=== PATIENT | male | born 1980 ===

== ENCOUNTER 2021-07-25 10:07 | Outpatient (REF) | payer OTHER, SELFPAY ==
[2021-07-25 11:01] LABS: Thyroid Stimulating Hormone 0.59 uIU/mL (0.32-4.0)
== END 2021-07-25 10:08 | disposition home or self-care (01) ==
LOC: HO.LNP 10:07
PROVIDERS: Visit Provider Internal Medicine
DX: E03.9 Hypothyroidism, unspecified (principal)
CPT/HCPCS: 84443

== ENCOUNTER 2022-07-28 15:55 | Outpatient (REF) | payer OTHER, SELFPAY ==
[2022-07-28 17:01] LABS: Appearance Urine Clear; Color Urine Yellow; Glucose Urine UA Negative (Negative); Leukocyte Esterase Urine Negative (Negative); Nitrite Urine Negative (Negative); PH 5.5 (5.0-9.0); Specific Gravity - Urine 1.015 (1.005-1.025); Urine Blood Negative (Negative); Urine Ketones Negative (Negative); Urine Protein Negative (Neg-Trace)
[2022-07-28 17:04] LABS: Bacteria Urine None Seen (None Seen); Hyaline Casts Urine 0-2 /LPF (0-2); RBC Urine 0-2 /HPF (0-2); Squamous Epithelial Cell Urine 0-2 /HPF (0-2); WBC Urine 0-5 /HPF (0-5)
[2022-07-28 17:07] LABS: Basophils Percent Auto 0.4 % (0-2); Eosinophils Absolute Auto 0.2 X10*3/uL (0.0-0.4); Eosinophils Percent Auto 2.4 % (0-4); Hematocrit 42.2 % (42.0-52.0); Imm Gran Abs Auto 0.04 X10*3/uL (0.00-0.03); Imm Gran Pct Auto 0.4 % (0.0-0.4); Lymphocytes Absolute Auto 1.5 X10*3/uL (1.2-4.9); Lymphocytes Percent Auto 15.9 % (20-40); MANUAL DIFF FLAG SCAN; Mean Corpuscular HGB Conc 33.2 g/dl (31.0-36.0); Mean Corpuscular Hemoglobin 28.8 pg (27.0-33.0); Mean Corpuscular Volume 86.8 fL (80.0-98.0); Mean Platelet Volume 9.3 fL (9.4-12.4); Monocytes Absolute Auto 1.7 X10*3/uL (0.1-1.2); Monocytes Percent Auto 17.6 % (2-11); Neutrophils Percent Auto 63.3 % (45-73); Platelet Count 305 X10*3/uL (160-400); Red Blood Count 4.86 X10*6/uL (4.60-5.80); Red Cell Distribution Width 12.6 % (11.0-16.0); SCAN SMEAR FLAG 1; White Blood Count 9.5 X10*3/uL (4.8-10.8)
[2022-07-28 17:28] LABS: Alanine Aminotransferase 27 U/L (0-40); Albumin Level 4.1 g/dL (3.5-5.0); Alkaline Phosphatase 62 U/L (39-117); Anion Gap 12 (12-20); Aspartate Amino Transferase 27 U/L (5-37); Bilirubin Total 0.5 mg/dL (0.0-1.0); Blood Urea Nitrogen 15 mg/dL (9-16); Calcium 8.8 mg/dL (8.4-10.2); Carbon Dioxide 31 mmol/L (22-29); Chloride 102 mmol/L (96-108); Cholesterol 245 mg/dL; Estimated Glomerular Filt Rate > 60; Glucose Random 89 mg/dL (60-115); HDL Cholesterol 69 mg/dL; LDL Cholesterol Calculated 158 mg/dl; Sodium 141 mmol/L (135-145); Total Protein 6.6 g/dL (6.5-8.0); Triglycerides 93 mg/dL
[2022-07-28 17:43] LABS: PSA,Total (Free>4and<10) 0.51 ng/mL (0.00-4.00)
[2022-07-28 18:04] LABS: SLIDE REVIEW VERIFIED
== END 2022-07-28 15:56 | disposition home or self-care (01) ==
LOC: HO.LNP 15:55
PROVIDERS: PCP Internal Medicine; Visit Provider Internal Medicine
DX: Z00.00 Encounter for general adult medical examination without abnormal findings (principal); Z12.5 Encounter for screening for malignant neoplasm of prostate; E03.9 Hypothyroidism, unspecified; D72.820 Lymphocytosis (symptomatic)
CPT/HCPCS: 80053; 80061; 81001; 84153; 85025

== ENCOUNTER 2022-08-20 16:01 | Outpatient (REF) | payer OTHER, SELFPAY ==
[2022-08-20 16:05] LABS: MANUAL DIFF FLAG NO
[2022-08-20 16:07] LABS: Basophils Percent Auto 0.9 % (0-2); Eosinophils Absolute Auto 0.3 X10*3/uL (0.0-0.4); Eosinophils Percent Auto 6.3 % (0-4); Hematocrit 38.1 % (42.0-52.0); Hemoglobin 12.9 g/dl (14.0-18.0); Lymphocytes Absolute Auto 1.7 X10*3/uL (1.2-4.9); Lymphocytes Percent Auto 39.2 % (20-40); Mean Corpuscular HGB Conc 33.9 g/dl (31.0-36.0); Mean Corpuscular Hemoglobin 29.1 pg (27.0-33.0); Mean Corpuscular Volume 85.8 fL (80.0-98.0); Mean Platelet Volume 9.2 fL (9.4-12.4); Monocytes Absolute Auto 0.6 X10*3/uL (0.1-1.2); Monocytes Percent Auto 13.5 % (2-11); Neutrophils Absolute Auto 1.7 x10*3/uL (2.0-8.3); Neutrophils Percent Auto 40.1 % (45-73); Platelet Count 386 X10*3/uL (160-400); Red Blood Count 4.44 X10*6/uL (4.60-5.80); Red Cell Distribution Width 12.1 % (11.0-16.0); White Blood Count 4.3 X10*3/uL (4.8-10.8)
== END 2022-08-20 16:02 | disposition home or self-care (01) ==
LOC: HO.LNP 16:01
PROVIDERS: Visit Provider Internal Medicine
DX: D72.821 Monocytosis (symptomatic) (principal)
CPT/HCPCS: 85025

== ENCOUNTER 2023-10-04 10:57 | Outpatient (REF) | payer OTHER, SELFPAY ==
[2023-10-04 11:00] LABS: MANUAL DIFF FLAG NO
[2023-10-04 11:05] LABS: Basophils Absolute Auto 0.1 X10*3/uL (0.0-0.2); Basophils Percent Auto 0.8 % (0-2); Eosinophils Absolute Auto 0.3 X10*3/uL (0.0-0.4); Eosinophils Percent Auto 5.4 % (0-4); Hematocrit 40.4 % (42.0-52.0); Hemoglobin 14.2 g/dl (14.0-18.0); Imm Gran Abs Auto 0.01 X10*3/uL (0.00-0.03); Imm Gran Pct Auto 0.2 % (0.0-0.4); Lymphocytes Absolute Auto 2.5 X10*3/uL (1.2-4.9); Lymphocytes Percent Auto 42.4 % (20-40); Mean Corpuscular HGB Conc 35.1 g/dl (31.0-36.0); Mean Corpuscular Hemoglobin 30.4 pg (27.0-33.0); Mean Corpuscular Volume 86.5 fL (80.0-98.0); Mean Platelet Volume 9.3 fL (9.4-12.4); Monocytes Absolute Auto 0.7 X10*3/uL (0.1-1.2); Monocytes Percent Auto 11.3 % (2-11); Neutrophils Absolute Auto 2.4 x10*3/uL (2.0-8.3); Neutrophils Percent Auto 39.9 % (45-73); Platelet Count 292 X10*3/uL (160-400); Red Blood Count 4.67 X10*6/uL (4.60-5.80); White Blood Count 5.9 X10*3/uL (4.8-10.8)
[2023-10-04 11:26] LABS: Appearance Urine Clear; Color Urine Yellow; Glucose Urine UA Negative (Negative); Leukocyte Esterase Urine Negative (Negative); Nitrite Urine Negative (Negative); PH 5.5 (5.0-9.0); Specific Gravity - Urine 1.015 (1.005-1.025); Urine Blood Negative (Negative); Urine Ketones Negative (Negative); Urine Protein Negative (Neg-Trace)
[2023-10-04 11:30] LABS: Bacteria Urine None Seen (None Seen); Hyaline Casts Urine 0-2 /LPF (0-2); RBC Urine 0-2 /HPF (0-2); Squamous Epithelial Cell Urine 0-2 /HPF (0-2); WBC Urine 0-5 /HPF (0-5)
[2023-10-04 11:32] LABS: Alanine Aminotransferase 28 U/L (0-40); Albumin Level 3.9 g/dL (3.5-5.0); Alkaline Phosphatase 56 U/L (39-117); Anion Gap 16 (12-20); Aspartate Amino Transferase 26 U/L (5-37); Bilirubin Total 0.7 mg/dL (0.0-1.0); Blood Urea Nitrogen 13 mg/dL (9-16); Calcium 9.1 mg/dL (8.4-10.2); Carbon Dioxide 26 mmol/L (22-29); Chloride 104 mmol/L (96-108); Cholesterol 229 mg/dL (<200); Estimated Glomerular Filt Rate > 60; Glucose Fasting 82 mg/dL (60-99); HDL Cholesterol 55 mg/dL (>40); LDL Cholesterol Calculated 134 mg/dL (<100); Sodium 142 mmol/L (135-145); Total Protein 6.9 g/dL (6.5-8.0); Triglycerides 203 mg/dL (<150)
[2023-10-04 11:55] LABS: TSH reflex Free T4 0.18 uIU/mL (0.32-4.0)
[2023-10-04 12:37] LABS: Free T4 (Free Thyroxine) 1.42 ng/dL (0.71-1.85)
== END 2023-10-04 10:58 | disposition home or self-care (01) ==
LOC: HO.LNP 10:57
PROVIDERS: Visit Provider Internal Medicine
DX: Z00.00 Encounter for general adult medical examination without abnormal findings (principal); E03.9 Hypothyroidism, unspecified; D72.820 Lymphocytosis (symptomatic); Z12.5 Encounter for screening for malignant neoplasm of prostate
CPT/HCPCS: 80053; 80061; 81001; 84153; 84439; 84443; 85025

== ENCOUNTER 2024-06-19 13:02 | Outpatient (REF) | payer OTHER, SELFPAY ==
[2024-06-19 13:44] LABS: TSH reflex Free T4 < 0.01 uIU/mL (0.32-4.0)
[2024-06-19 14:26] LABS: Free T4 (Free Thyroxine) 1.69 ng/dL (0.71-1.85)
--- OUTSIDE RECORDS SUMMARY | 2024-06-19 17:40 | XMS_ITS | Patient Health Record ---
Author Organization Jersey López MD Address [address] [employer], [place] [id number] Care Team Providers Care Drafter Automotive Design Name Role Phone Jersey López Primary Care Provider Allergies No Known Allergies Results Component Value Reference Range Notes Complete Blood Count Auto Di ff Reviewed date:10/04/2023 12:38:10 PM Interpretation: Performing Lab:[facility], [address] [place] [phone] Notes/Report: White Blood Count 5.9 4.8-10.8 X10*3/uL Red Blood Count 4.67 4.60-5.80 X10*6/uL Hemoglobin 14.2 14.0-18.0 g/dl Hematocrit 40.4 42.0-52.0 % Mean Corpuscular Volume 86.5 80.0-98.0 fL Mean Corpuscular Hemoglobin 30.4 27.0-33.0 pg Mean Corpuscular HGB Conc 35.1 31.0-36.0 g/dl Red Cell Distribution Width 13.0 11.0-16.0 % Platelet Count 292 160-400 X10*3/uL Mean Platelet Volume 9.3 9.4-12.4 fL Neutrophils Percent Auto 39.9 45-73 % Imm Gran Pct Auto 0.2 0.0-0.4 % Lymphocytes Percent Auto 42.4 20-40 % Monocytes Percent Auto 11.3 2-11 % Eosinophils Percent Auto 5.4 0-4 % Basophils Percent Auto 0.8 0-2 % NRBC Pct Auto 0.0 0.0-0.2 /100WBC Neutrophils Absolute Auto 2.4 2.0-8.3 x10*3/u L Imm Gran Abs Auto 0.01 0.00-0.03 X10*3/uL Lymphocytes Absolute Auto 2.5 1.2-4.9 X10*3/u L Monocytes Absolute Auto 0.7 0.1-1.2 X10*3/uL Eosinophils Absolute Auto 0.3 0.0-0.4 X10*3/u L Basophils Absolute Auto 0.1 0.0-0.2 X10*3/uL NRBC Abs Auto 0.000 0.0-0.012 X10*3/uL Comprehensive Petros. Panel Fa st Reviewed date:10/04/2023 01:12:30 PM Interpretation: Performing Lab:[facility], [address] [place] [phone] Notes/Report: Sodium 142 135-145 mmol/L Potassium 4.0 3.3-5.1 mmol/L Chloride 104 96-108 mmol/L Carbon Dioxide 26 22-29 mmol/L Anion Gap 16 12-20 Blood Urea Nitrogen 13 9-16 mg/dL Creatinine 0.86 0.5-1.4 mg/dL Estimated Glomerular Filt Rate > 60 NOTE: For -Colombian individuals, multiply the result by 1.210. Chronic Kidney Disease: Estimated GFR < 60 mL/min/1.73m2 Severe Kidney Disease: Estimated GFR < 15 mL/min/1.73m2 Glucose Fasting 82 60-99 mg/dL Calcium 9.1 8.4-10.2 mg/dL Bilirubin Total 0.7 0.0-1.0 mg/dL Aspartate Amino Transferase 26 5-37 U/L Alanine Aminotransferase 28 0-40 U/L Total Protein 6.9 6.5-8.0 g/dL Albumin Level 3.9 3.5-5.0 g/dL Alkaline Phosphatase 56 39-117 U/L Lipid Panel Reviewed date:10/04/2023 12:39:46 PM Interpretation: Performing Lab:[facility], [address] [place] [phone] Notes/Report: Triglycerides 203 <150 mg/dL Desirable Triglyceride: less than 150 mg/dL Borderline High Triglyceride 150-199 mg/dL High Triglyceride: 200-499 mg/dL Very High Triglyceride: greater than or equal to 5OO mg/dL Cholesterol 229 <200 mg/dL Desirable Cholesterol: less than 200 mg/dL Borderline High Cholesterol: 200-239 mg/dL High Cholesterol: greater than 239 mg/dL LDL Cholesterol Calculated 134 <100 mg/dL Desirable LDL: less than 100 mg/dL Near Optimal/Above Optimal LDL: 110-129 mg/dL Borderline High LDL: 130-159 mg/dL High LDL: 160-189 mg/dL Very High LDL: greater than or equal to 190 mg/dL HDL Cholesterol 55 >40 mg/dL Desirable HDL: greater than 40 mg/dL Note: This HDL assay may give artificially low results in patients with liver disease. PSA,Total (Free>4and<10) Reviewed date:10/04/2023 12:36:17 PM Interpretation: Performing Lab:[address] [phone] Notes/Report: PSA,Total (Free>4and<10) 0.50 0.00-4.00 ng/mL A Free PSA was not performed: The percentage of Free PSA can be used to enhance the differentiation of prostate cancer from benign prostatic disease in subjects whose PSA levels are between 4.0 and 10.0 ng/mL. For subjects whose PSA levels are below 4.0 or above 10.0 ng/mL, the risk of prostate cancer is determined on the basis of the PSA alone. Therefore the % Free PSA is recommended only for those subjects whose PSA levels are between 4.0 and 10.0 ng/mL. PSA methodology: Buck Alinity i Chemiluminescent Microparticle Immunoassay (CMIA) TSH reflex Free T4 Reviewed date:10/04/2023 12:39:34 PM Interpretation: Performing Lab:[facility], [address] [place] [phone] Notes/Report: TSH reflex Free T4 0.18 0.32-4.0 uIU/mL UA ClnCatch+Micro w/rflx Cul t Reviewed date:10/05/2023 12:36:30 PM Interpretation: Performing Lab:[address] [phone] Notes/Report: Urine, Clean Catch Color Urine Yellow Appearance Urine Clear PH 5.5 5.0-9.0 Glucose Urine UA Negative Negative mg/dL Urine Blood Negative Negative Specific [place] - Urine 1.015 1.005-1.025 Urine Protein Negative Neg-Trace mg/dL Urine Ketones Negative Negative mg/dL Nitrite Urine Negative Negative Leukocyte Esterase Urine Negative Negative RBC Urine 0-2 0-2 /HPF WBC Urine 0-5 0-5 /HPF Squamous Epithelial Cell Urine 0-2 0-2 /HPF Bacteria Urine None Seen None Seen Hyaline Casts Urine 0-2 0-2 /LPF TSH reflex Free T4 Reviewed date:06/19/2024 03:23:38 PM Interpretation: Performing Lab:[facility], [address] [place] [phone] Notes/Report: TSH reflex Free T4 < 0.01 0.32-4.0 uIU/mL Occult Blood, Stool, Guaiac Reviewed date:10/05/2023 10:59:48 AM Interpretation:Negative Performing Lab: Notes/Report: Negative Occult Blood, Stool, Guaiac Neg Free T4 (Free Thyroxine) Reviewed date:10/04/2023 12:42:15 PM Interpretation: Performing Lab:[address] [phone] Notes/Report: Free T4 (Free Thyroxine) 1.42 0.71-1.85 ng/dL Free T4 (Free Thyroxine) Reviewed date:06/19/2024 03:23:22 PM Interpretation: Performing Lab:[facility], [address] [place] [phone] Notes/Report: Free T4 (Free Thyroxine) 1.69 0.71-1.85 ng/dL Reason For Referral Reason annual physical exam needs colonoscopy Diagnosis 1 Annual physical exam (Z00.00) Referral Organization Jersey López MD Referring Provider First Name Jersey Referring Provider Last Name Rene Referring Provider Speciality Internal M edicine Referred Provider Neno Batres Referred Provider Specialty Gastroentero logy General Notes Sepideh Alex 10:32:26 AM EDT > patient will call us with who he wants got to., Sepideh Alex 10/11/2023 10:19:39 AM EDT > left message for patient to call office with info , Sepideh Alex 10/14/2023 10:54:21 AM EDT > left messagefor patient to call office regarding GI referral, need name of doctor he wants to see, Sepideh Alex 10/28/2023 02:32:46 PM EDT > left another message , Sepideh Alex 11/15/2023 11:10:38 AM EDT > spoke with patient he wants to go with [facility], he said he will call and booked his own appt and call me back with info., Sepideh Alex 11/16/2023 03:40:25 PM EDT > info faxed phone [phone], Sepideh Alex 12/02/2023 03:20:03 PM EDT > pre-op appt 12-20-23 at 8:30am with [place] [address] [place] procedure at [facility] with Dr. Gilman 04-27-24 at 1:30, Sepideh Alex 12/03/2023 11:26:19 AM EDT > info mailed to patient Referral Priority Routine Referral Appointment Date 12/20/2023 Medications Medication SIG (Take, Route, Frequency, Duration) Notes Start Date End Date Status Levothyroxine Sodium 112 MCG TAKE 2 TABL ETS BY MOUTH ONCE DAILY IN THE MORNING ON AN EMPTY STOMACH Orally Once a day for 90 days Active Immunizations Vaccine Route Administration Date Status Comme nts Tetanus IM Intramuscular 10/21/2015 Administered pt was given the vaccine at [place]. SARS-COV-2 Moderna Unknown 05/22/2020 Administered SARS-COV-2 Moderna Unknown 06/19/2020 Administered Fluarix Quadrivalent Unknown 04/01/2021 Administered Social History Tobacco Use: Social History Observation Description Date Details (start date - stop date) Former Smoker NA - NA Tobacco Use/Smoking Question Answer Notes Patient is a former smoker How long has it been since y ou last smoked? > 10 years Additional Findings: Tobacco Non-User Fo rmer smoker, currently using no form of tobacco Alcohol Screen Question Answer Notes Did you have a drink contain ing alcohol in the past year? Yes How often did you have a dri nk containing alcohol in the past year? Monthly or less (1 point) How many drinks did you have on a typical day when you were drinking in the past year? 1 or 2 drinks (0 point) How often did you have 6 or more drinks on one occasion in the past year? Never (0 point) Points 1 Interpretation Negative Problems Problem Type SNOMED Code ICD Code Onset Dates Problem Status W/U Status Risk Notes Problem Lymphocytosis (87158891) Lymphocytosis (D72.820) Active confirmed Problem 483850002 Acquired hypothyroidism (E03.9) Active confirmed Problem Monocytosis (62393009) Monocytosis (D72.821) Active confirmed Vital Signs Blood pressure diastolic 70 mm Hg 06/19/2024 hank ght is up 2 pounds since 10-05-23 Height 75.5 in 06/19/2024 weight is up 2 pounds since 10-05-23 Blood pressure systolic 112 mm Hg 06/19/2024 weig ht is up 2 pounds since 10-05-23 Weight 200 lbs 06/19/2024 weight is up 2 pounds since 10-05-23 BMI 24.67 kg/m2 06/19/2024 weight is up 2 pounds since 10-05-23 Encounters Encounter Location Date Provider Diagnosis Jersey López MD [address] [place] [id number] 10/04/2023 Jersey López Acquired hypothyroidism E03.9 ; Lymphocytosis D72.820 and Blood tests for routine general physical examination Z00.00 Jersey López MD [address] [place] [id number] 06/19/2024 Jersey López Acquired hypothyroidism E03.9 Jersey López MD [address] [place] [id number] 10/05/2023 Jersey López Annual physical exam Z00.00 ; Lymphocytosis D72.820 ; Acquired hypothyroidism E03.9 ; Colon cancer screening Z12.11 and Depression screening Z13.31 Jersey López MD [address] [place] [id number] 03/21/2024 Jersey López MD [address] [place] [id number] 03/24/2024 Jersey López MD [address] [place] [id number] 06/13/2024 Jersey López Acquired hypothyroidism E03.9 Assessments Encounter Date Diagnosis (ICD Code) Assessment Notes Treatment Notes Treatment Clinical Notes Section Notes 10/04/2023 Acquired hypothyroidism (ICD-10 - E03.9) 10/04/2023 Lymphocytosis (ICD-10 - D72.820) 06/19/2024 Acquired hypothyroidism (ICD-10 - E03.9) patient verbalized understanding to stop medication, will continue to monitor, pending lab 10/05/2023 Annual physical exam (ICD-10 - Z00.00) labs reviewed and discussed with patient, needs referral to gi for colonoscopy 10/05/2023 Lymphocytosis (ICD-10 - D72.820) 06/13/2024 Acquired hypothyroidism (ICD-10 - E03.9) 10/04/2023 Blood tests for routine general physical examination (ICD-10 - Z00.00) 10/05/2023 Acquired hypothyroidism (ICD-10 - E03.9) order given to patient. 10/05/2023 Colon cancer screening (ICD-10 - Z12.11) guaiac negative 10/05/2023 Depression screening (ICD-10 - Z13.31) Plan Of Treatment Pending Test Test Name Order Date TSH (THYROID STIMULATING HORMONE) 2020 Future Test Test Name Order Date TSH reflex Free T4 04/06/2024 Next Appt Details Provider Name:Jersey Lenz ier, 08/29/2024 07:00:00 AM, [address] [place] [address], [address], [phone], Provider Name:Jersey Lenz ier, 09/05/2024 09:30:00 AM, [address] [place] [address], [place] [address], [employer], [place], [phone], Insurance Providers Payer Name Payer Address Payer Phone Subscriber Number Group Number Insured Name Patient Relationship to Insured Coverage Start Date Coverage End Date [facility] [address] [facility] [address] [id number] [phone] [id number] Tee Robles se Self - patient is the insured
--- OUTSIDE RECORDS SUMMARY | 2024-06-19 17:40 | XMS_ITS ---
Author Organization Jersey López MD Address [address] [place] [phone] Care Team Providers Care Production Line Welder Name Role Phone Jersey López Primary Care Provider REASON FOR VISIT TSH Encounters Encounter Location Date Provider Diagnosis Jersey López MD [address] [place] [address] [place] [phone] 04/06/2024 Jersey López Plan Of Treatment Next Appt Details Provider Name:Jersey barrientos, 08/29/2024 07:00:00 AM, [address] [place] [address], Suite [facility], [place], [place], [phone], Provider Name:Jersey barrientos, 09/05/2024 09:30:00 AM, [address] [place] [address], [address] [place] [address], [phone], Progress Notes * Tee VILLATORO WDOB:1979 (44 yo M)Acc No.[id number]:04/06/2024 Progress Note Patient:?Tee VILLATORO W Provider:?Jersey López MD :1980???Age:44 Y???Sex:Male Ulises e:04/06/2024 Address: [address] [place], [place] Subjective: * Chief Complaints: * ???1. TSH. * Medical History:? Objective: * Vitals:? Assessment: Plan: * Treatment: * * The named appointment provid er may or may not be the originator of this progress note, and it is not deemed complete until electronically signed by the appointment provider. Sign off status: Pending * Provider:?Jersey López MD Date:?1 06/06/2023 Generated for Rosaline huston/Nick/Prashant on:?06/19/2024 05:40 PM EST
--- OUTSIDE RECORDS SUMMARY | 2024-06-19 17:40 | XMS_ITS ---
Author Organization Jersey López MD Address [address] [place] [phone] Care Team Providers Care Right Of Way Maintenance Supervisor Name Role Phone Jersey López Primary Care Provider REASON FOR VISIT RF Levothyrox 25mcg Medications Medication SIG (Take, Route, Frequency, Duration) Notes Start Date End Date Status Levothyroxine Sodium 25 MCG TAKE 1 TABLE T BY MOUTH ONCE DAILY IN THE MORNING ON AN EMPTY STOMACH Orally Once a day for 90 days Active Encounters Encounter Location Date Provider Diagnosis Jersey López MD [address] [place] [address] [place] [id number] 06/13/2024 Jersey López Acquired hypothyroidism E03.9 Assessments Encounter Date Diagnosis (ICD Code) Assessment Notes Treatment Notes Treatment Clinical Notes Section Notes 06/13/2024 Acquired hypothyroidism (ICD-10 - E03.9) Plan Of Treatment Medication Medication Name Sig Start Date Stop Date Notes Levothyroxine Sodium 25 MCG TAKE 1 TABLE T BY MOUTH ONCE DAILY IN THE MORNING ON AN EMPTY STOMACH Orally Once a day for 90 days Next Appt Details Provider Name:Jersey barrientos, 08/29/2024 07:00:00 AM, [address] [place] [address], [place] [address], [place], [place], [phone], Provider Name:Jersey barrientos, 09/05/2024 09:30:00 AM, [address] [place] [address], [place] [address], [place], [place], [phone], Progress Notes * Tee VILLATORO WDOB:1979 (44 yo M)Acc No.[id number]:06/13/2024 Patient:?Tee Villatoro :1980???Age:44 Y???Sex:Male Address:[address] [place] [address], [place] [address] * Refills? Refill Levothyroxine Sodium Tablet, 25 MCG, Orally, 90, TAKE 1 TABLET BY MOUTH ONCE DAILY IN THE MORNING ON AN EMPTY STOMACH, Once a day, 90 days, Refills=0 * true * Date:? Generated for Rosaline huston/Nick/eTransmitting on:?06/19/2024 05:40 PM EST
--- OUTSIDE RECORDS SUMMARY | 2024-06-19 17:40 | XMS_ITS ---
Author Organization Jersey López MD Address [address] [place] [phone] Care Team Providers Care Contact Clerk Name Role Phone Jersey López Primary Care Provider [phone] Allergies No Known Allergies Results Component Value Reference Range Notes TSH reflex Free T4 Reviewed date:06/19/2024 03:23:38 PM Interpretation: Performing Lab:[facility], [address] [place] [phone] Notes/Report: TSH reflex Free T4 < 0.01 0.32-4.0 uIU/mL REASON FOR VISIT CBACK THYROID Medications Medication SIG (Take, Route, Frequency, Duration) Notes Start Date End Date Status Levothyroxine Sodium 112 MCG TAKE 2 TABL ETS BY MOUTH ONCE DAILY IN THE MORNING ON AN EMPTY STOMACH Orally Once a day for 90 days Active Vital Signs Blood pressure systolic 112 mm Hg 06/19/19 25 Blood pressure diastolic 70 mm Hg 025 Height 75.5 in 06/19/2024 Weight 200 lbs 06/19/2024 BMI 24.67 kg/m2 06/19/2024 weight is up 2 pounds since 10-05-23 Encounters Encounter Location Date Provider Diagnosis Jersey López MD [address] [place] [phone] 06/19/2024 Jersey López Acquired hypothyroidism E03.9 Assessments Encounter Date Diagnosis (ICD Code) Assessment Notes Treatment Notes Treatment Clinical Notes Section Notes 06/19/2024 Acquired hypothyroidism (ICD-10 - E03.9) patient verbalized understanding to stop medication, will continue to monitor, pending lab Plan Of Treatment Medication Medication Name Sig Start Date Stop Date Notes Levothyroxine Sodium 25 MCG TAKE 1 TABLE T BY MOUTH ONCE DAILY IN THE MORNING ON AN EMPTY STOMACH Orally Once a day Treatment Notes Assessment Notes Acquired hypothyroidism patient verbaliz ed understanding to stop medication, will continue to monitor, pending lab Next Appt Details Follow Up: 6 Weeks, Reason: Provider Name:Jersey Az Lenz ier, 08/29/2024 07:00:00 AM, [address] [facility], [address], [place], [place], [phone], Provider Name:Jersey Lenz ier, 09/05/2024 09:30:00 AM, [address] [facility], [address], [place], [place], [phone], Progress Notes * Tee VILLATORO WDOB:1979 (44 yo M)Acc No.[id number]:06/19/2024 Patient:?Tee VILLATORO W Provider:?Jersey López MD :1980???Age:44 Y???Sex:Male Ulises e:06/19/2024 Address:[address] [place] [address], [place], [place] Subjective: * Chief Complaints: * ???1. CBACK THYROID. * HPI: ???Symptom(s):?patient is a 44 yo male here for follow up thyroid. not taking any extra meds. one year ago went? to endocrine. * ROS:?General/Constitutional:?Denies?Chills.?Denies?Fatigue.?Denies?Fever.?Denies?Headache.?ENT:?Patient denies?decreased sense of smell, any loss of taste, sore throat.?Denies?Sore throat.?Respiratory:?Denies?Cough.?Denies?Shortness of breath at rest.?Denies?Shortness of breath with exertion.?Gastrointestinal:?Denies?Nausea.?Musculoskeletal:?Patient denies?muscle aches.?Peripheral Vascular:?Patient denies?red and blue toes.? * Medical History:?Medical His tory Verified. * Medications:?Taking Levothyr oxine Sodium 112 MCG Tablet TAKE 2 TABLETS BY MOUTH ONCE DAILY IN THE MORNING ON AN EMPTY STOMACH Orally Once a day , Taking Levothyroxine Sodium 25 MCG Tablet TAKE 1 TABLET BY MOUTH ONCE DAILY IN THE MORNING ON AN EMPTY STOMACH Orally Once a day , Medication List reviewed and reconciled with the patient * Allergies:?N.K.D.A. Objective: * Vitals:?Ht: 75.5, Wt: 200, B NC:24.67, BP:112/70, Wt-k.72. weight is up? 2 pounds since 10-05-23. * Examination: ???General Examination: ?GENERAL APPEARANCE:?alert, well hydrated, in no distress.?SKIN:?good turgor.?HEART:?no murmurs, rubs, gallops, regular rate and rhythm.?LUNGS:?no wheezes, rales, rhonchi, good air movement, clear to auscultation bilaterally.? Assessment: * Assessment: 1.?Acquired hypothyroidism - E03.9 (Primary)??? Plan: * Treatment: * Procedure Codes:?15265 VENIP UNCT, ROUTINE* * Follow Up:?6 Weeks * * The named appointment provid er may or may not be the originator of this progress note, and it is not deemed complete until electronically signed by the appointment provider. Sign off status: Pending * Provider:?Jersey López MD Date:?0 06/19/2024 Generated for Rosaline huston/Nick/Franciscaitting on:?06/19/2024 05:40 PM EST History and Physical Notes * HPI (History of Present Illness) Category Sub-Category Detail Notes Category Not es Symptom(s) patient is a 44 yo male here for follow up thyroid. not taking any extra meds. one year ago went to endocrine Examination Category Sub-Category Detail Notes Category Not es General Examination GENERAL APPEARANCE: alert, w ell hydrated, in no distress HEART: no murmurs, rubs, ga llops, regular rate and rhythm LUNGS: no wheezes, rales, r honchi, good air movement, clear to auscultation bilaterally SKIN: good turgor
== END 2024-06-19 13:03 | disposition home or self-care (01) ==
LOC: HO.LNP 13:02
PROVIDERS: Visit Provider Internal Medicine
DX: E03.9 Hypothyroidism, unspecified (principal)
CPT/HCPCS: 84439; 84443

== ENCOUNTER 2024-09-01 11:09 | Outpatient (REF) | payer OTHER, SELFPAY ==
[2024-09-01 11:12] LABS: MANUAL DIFF FLAG NO
[2024-09-01 11:29] LABS: Appearance Urine Clear; Color Urine Yellow; Glucose Urine UA Negative (Negative); Leukocyte Esterase Urine Negative (Negative); Nitrite Urine Negative (Negative); PH 5.5 (5.0-9.0); Urine Blood Negative (Negative); Urine Ketones Negative (Negative); Urine Protein Negative (Neg-Trace)
[2024-09-01 11:30] LABS: Basophils Percent Auto 0.5 % (0-2); Eosinophils Absolute Auto 0.2 X10*3/uL (0.0-0.4); Eosinophils Percent Auto 2.9 % (0-4); Hematocrit 39.2 % (42.0-52.0); Hemoglobin 13.2 g/dl (14.0-18.0); Imm Gran Abs Auto 0.02 X10*3/uL (0.00-0.03); Imm Gran Pct Auto 0.4 % (0.0-0.4); Lymphocytes Absolute Auto 2.2 X10*3/uL (1.2-4.9); Mean Corpuscular HGB Conc 33.7 g/dl (31.0-36.0); Mean Corpuscular Hemoglobin 29.1 pg (27.0-33.0); Mean Corpuscular Volume 86.5 fL (80.0-98.0); Mean Platelet Volume 9.4 fL (9.4-12.4); Monocytes Absolute Auto 0.7 X10*3/uL (0.1-1.2); Monocytes Percent Auto 13.5 % (2-11); Neutrophils Absolute Auto 2.3 x10*3/uL (2.0-8.3); Neutrophils Percent Auto 42.7 % (45-73); Platelet Count 307 X10*3/uL (160-400); Red Blood Count 4.53 X10*6/uL (4.60-5.80); Red Cell Distribution Width 12.2 % (11.0-16.0); White Blood Count 5.5 X10*3/uL (4.8-10.8)
[2024-09-01 11:32] LABS: Bacteria Urine None Seen (None Seen); Hyaline Casts Urine 0-2 /LPF (0-2); RBC Urine 0-2 /HPF (0-2); Squamous Epithelial Cell Urine 0-2 /HPF (0-2); WBC Urine 0-5 /HPF (0-5)
[2024-09-01 11:54] LABS: Alanine Aminotransferase 22 U/L (0-40); Albumin Level 3.9 g/dL (3.5-5.0); Alkaline Phosphatase 56 U/L (39-117); Anion Gap 10 (12-20); Aspartate Amino Transferase 23 U/L (5-37); Bilirubin Total 0.8 mg/dL (0.0-1.0); Blood Urea Nitrogen 15 mg/dL (9-16); Carbon Dioxide 27 mmol/L (22-29); Chloride 105 mmol/L (96-108); Cholesterol 182 mg/dL (<200); Estimated Glomerular Filt Rate > 60; Glucose Fasting 92 mg/dL (60-99); HDL Cholesterol 47 mg/dL (>40); LDL Cholesterol Calculated 116 mg/dL (<100); Potassium 3.9 mmol/L (3.3-5.1); Sodium 138 mmol/L (135-145); Total Protein 6.6 g/dL (6.5-8.0); Triglycerides 97 mg/dL (<150)
[2024-09-01 11:59] LABS: PSA,Total (Free>4and<10) 0.72 ng/mL (0.00-4.00)
--- OUTSIDE RECORDS SUMMARY | 2024-09-01 12:09 | XMS_ITS ---
Author Organization Jersey López MD Address [address] [place] [phone] Care Team Providers Care Oracle Fusion Consultant Name Role Phone Jersey López Primary Care Provider Allergies No Known Allergies REASON FOR VISIT CHECK THYROID, labs in patient docs Medications Medication SIG (Take, Route, Frequency, Duration) Notes Start Date End Date Status Levothyroxine Sodium 200 MCG 1 tablet in the morning on an empty stomach Orally Once a day for 90 days 08/03/2024 Active Levothyroxine Sodium 112 MCG TAKE 2 TABL ETS BY MOUTH ONCE DAILY IN THE MORNING ON AN EMPTY STOMACH Orally Once a day for 90 days Active Vital Signs Blood pressure systolic 102 mm Hg 08/04/19 25 Blood pressure diastolic 70 mm Hg 025 Height 75.5 in 08/03/2024 Weight 200 lbs 08/03/2024 BMI 24.67 kg/m2 08/03/2024 Encounters Encounter Location Date Provider Diagnosis Jersey López MD [address] [place] [phone] 08/03/2024 Jersey López Acquired hypothyroidism E03.9 Assessments Encounter Date Diagnosis (ICD Code) Assessment Notes Treatment Notes Treatment Clinical Notes Section Notes 08/03/2024 Acquired hypothyroidism (ICD-10 - E03.9) reviewed labs with patient, patient verbalized understanding of medication and directions for use. ORDER PRINTED AND GIVEN TO PATIENT ,HE WILL [facility]AVEDONE IN 3 MO AT [facility] Plan Of Treatment Medication Medication Name Sig Start Date Stop Date Notes Levothyroxine Sodium 200 MCG 1 tablet in the morning on an empty stomach Orally Once a day for 90 days 08/03/2024 Treatment Notes Assessment Notes Acquired hypothyroidism reviewed labs wi th patient, patient verbalized understanding of medication and directions for use. ORDER PRINTED AND GIVEN TO PATIENT ,[facility] Pending Test Test Name Order Date TSH reflex Free T4 08/03/2024 Next Appt Details Provider Name:Jersey Lenz ier, 09/05/2024 09:30:00 AM, [address], [address], [place], [place], [phone], Progress Notes * Tee VILLATORO WDOB:1979 (44 yo M)Acc No.[id number]:08/03/2024 Progress Notes Patient:?BUDRAJITee W Provider:?Jersey López MD :1980???Age:44 Y???Sex:Male Ulises e:08/03/2024 Address:[address] [place] [address], [facility] [place] Subjective: * Chief Complaints: * ???CHECK THYROIDLabs in ansley ent docs * HPI: ???Symptom(s):?patient is a 44 yo male here for follow up to check thyroid. * ROS:?General/Constitutional:?Denies?Chills.?Denies?Fatigue.?Denies?Fever.?Denies?Headache.?ENT:?Patient denies?decreased sense of smell, any loss of taste, sore throat.?Denies?Sore throat.?Respiratory:?Denies?Cough.?Denies?Shortness of breath at rest.?Denies?Shortness of breath with exertion.?Gastrointestinal:?Denies?Diarrhea.?Denies?Nausea.?Musculoskeletal:?Patient denies?muscle aches.?Peripheral Vascular:?Patient denies?red and blue toes.? * Medical History:? * Surgical History:? * Hospitalization/Major Diagno stic Procedure:? * Medications:?TakingLevothyro xine Sodium 112 MCG Tablet TAKE 2 TABLETS BY MOUTH ONCE DAILY IN THE MORNING ON AN EMPTY STOMACH Orally Once a day Medication List reviewed and reconciled with the patientTaking Levothyroxine Sodium 112 MCG Tablet TAKE 2 TABLETS BY MOUTH ONCE DAILY IN THE MORNING ON AN EMPTY STOMACH Orally Once a day Medication List reviewed and reconciled with the patient * Allergies:?N.K.D.A.yes[Aller gies Verified] Objective: * Vitals:?Ht: 75.5, Wt: 200, B PA:24.67, BP:102/70, Wt-k.72. * Examination: ???General Examination: ?GENERAL APPEARANCE:?alert, well hydrated, in no distress.?HEAD:?normocephalic.?SKIN:?good turgor.?HEART:?no murmurs, rubs, gallops, regular rate and rhythm.?LUNGS:?no wheezes, rales, rhonchi, good air movement, clear to auscultation bilaterally.? Assessment: * Assessment: 1.?Acquired hypothyroidism - E03.9 (Primary)??? Plan: * Treatment: * Procedure Codes:? * * Sign off status: Completed true * Provider:?Jersey López MD Date:?0 08/03/2024 Generated for Rosaline huston/Nick/eThasmitting on:?09/01/2024 12:09 PM EDT History and Physical Notes * HPI (History of Present Illness) Category Sub-Category Detail Notes Category Not es Symptom(s) patient is a 44 yo male here for follow up to check thyroid Examination Category Sub-Category Detail Notes Category Not es General Examination GENERAL APPEARANCE: alert, w ell hydrated, in no distress HEAD: normocephalic HEART: no murmurs, rubs, ga llops, regular rate and rhythm LUNGS: no wheezes, rales, r honchi, good air movement, clear to auscultation bilaterally SKIN: good turgor
--- OUTSIDE RECORDS SUMMARY | 2024-09-01 12:10 | XMS_ITS ---
Author Organization Jersey López MD Address [address] [place] [phone] Care Team Providers Care Tax Record Clerk Name Role Phone Jersey López Primary Care Provider Allergies No Known Allergies Results Component Value Reference Range Notes TSH reflex Free T4 Reviewed date:06/19/2024 03:23:38 PM Interpretation: Performing Lab:[facility], [address] [place] [phone] Notes/Report: TSH reflex Free T4 < 0.01 [...] Date Provider Diagnosis Jersey López MD [address] [place] [phone] 06/19/2024 Jersey López Acquired hypothyroidism E03.9 Assessments [...] Follow Up: 6 Weeks, Reason: Provider Name:Jersey Lenz ier, 09/05/2024 09:30:00 AM, [address], [address], [place], [place], [phone], Progress Notes * Tee VILLATORO WDOB:1979 (44 yo M)Acc No.[id number]:06/19/2024 Patient:?Tee VILLATORO W Provider:?Jersey López MD :1980???Age:44 Y???Sex:Male Ulises e:06/19/2024 Address:[address] [place] [address], [facility] Subjective: * Chief Complaints: * ???CBACK THYROID * HPI: ???Symptom(s):?patient is a 44 yo [...] AN EMPTY STOMACH Orally Once a day Levothyroxine Sodium 25 MCG Tablet TAKE 1 TABLET BY MOUTH ONCE DAILY IN THE MORNING ON AN EMPTY STOMACH Orally Once a day Medication List reviewed and reconciled with the patientTaking Levothyroxine Sodium 112 MCG Tablet TAKE 2 TABLETS BY MOUTH ONCE DAILY IN THE MORNING ON AN EMPTY STOMACH Orally Once a day Taking Levothyroxine Sodium 25 MCG Tablet TAKE 1 TABLET BY MOUTH ONCE DAILY IN THE MORNING ON AN EMPTY STOMACH Orally Once a day Medication List reviewed and reconciled with the patient * Allergies:?N.K.D.A.yes[Aller gies Verified] Objective: * Vitals:?Ht: 75.5, Wt: 200, B HI:24.67, BP:112/70, Wt-k.72. weight is up? 2 pounds since 10-05-23. * Examination: ???General Examination: ?GENERAL APPEARANCE:?alert, well hydrated, in no distress.?SKIN:?good turgor.?HEART:?no murmurs, rubs, gallops, regular rate and rhythm.?LUNGS:?no wheezes, rales, rhonchi, good air movement, clear to auscultation bilaterally.? Assessment: * Assessment: 1.?Acquired hypothyroidism - E03.9 (Primary)??? Plan: * Treatment: * Procedure Codes:?31524 VENIP UNCT, ROUTINE* * Follow Up:?6 Weeks * * Sign off status: Completed true * Provider:?Jersey López MD Date:?0 06/19/2024 Generated for Rosaline huston/Nick/Franciscaitting on:?09/01/2024 12:09 PM EDT History and Physical [...]
--- OUTSIDE RECORDS SUMMARY | 2024-09-01 12:10 | XMS_ITS ---
Author Organization Jersey López MD Address [address] [place], [place] [phone] Care Team Providers Care Senior Dynamics Crm Developer Name Role Phone Jersey López Primary Care Provider [phone] Results Component Value Reference Range Notes Complete Blood Count Auto Di ff (Not yet reviewed by provider) Interpretation: Performing Lab:[facility], [address] [place] [phone] Notes/Report: White Blood Count 5.5 4.8-10.8 X10*3/uL Red Blood Count 4.53 4.60-5.80 X10*6/uL Hemoglobin 13.2 14.0-18.0 g/dl Hematocrit 39.2 42.0-52.0 % Mean Corpuscular Volume 86.5 80.0-98.0 fL Mean Corpuscular Hemoglobin 29.1 27.0-33.0 pg Mean Corpuscular HGB Conc 33.7 31.0-36.0 g/dl Red Cell Distribution Width 12.2 11.0-16.0 % Platelet Count 307 160-400 X10*3/uL Mean Platelet Volume 9.4 9.4-12.4 fL Neutrophils Percent Auto 42.7 45-73 % Imm Gran Pct Auto 0.4 0.0-0.4 % Lymphocytes Percent Auto 40.0 20-40 % Monocytes Percent Auto 13.5 2-11 % Eosinophils Percent Auto 2.9 0-4 % Basophils Percent Auto 0.5 0-2 % NRBC Pct Auto 0.0 0.0-0.2 /100WBC Neutrophils Absolute Auto 2.3 2.0-8.3 x10*3/u L Imm Gran Abs Auto 0.02 0.00-0.03 X10*3/uL Lymphocytes Absolute Auto 2.2 1.2-4.9 X10*3/u L Monocytes Absolute Auto 0.7 0.1-1.2 X10*3/uL Eosinophils Absolute Auto 0.2 0.0-0.4 X10*3/u L Basophils Absolute Auto 0.0 0.0-0.2 X10*3/uL NRBC Abs Auto 0.000 0.0-0.012 X10*3/uL PSA,Total (Free>4and<10) (No t yet reviewed by provider) Interpretation: Performing Lab:[address] [phone] Notes/Report: PSA,Total (Free>4and<10) 0.72 0.00-4.00 ng/mL A Free PSA was not [...] Buck Alinity i Chemiluminescent Microparticle Immunoassay (CMIA) UA ClnCatch+Micro w/rflx Cul t (Not yet reviewed by provider) Interpretation: Performing Lab:[address] [phone] Notes/Report: Urine, Clean Catch Color Urine Yellow Appearance Urine Clear PH 5.5 5.0-9.0 Glucose Urine UA Negative Negative mg/dL Urine Blood Negative Negative Specific [place] - Urine 1.010 1.005-1.025 Urine Protein Negative Neg-Trace mg/dL Urine Ketones Negative Negative mg/dL Nitrite Urine Negative Negative Leukocyte Esterase Urine Negative Negative RBC Urine 0-2 0-2 /HPF WBC Urine 0-5 0-5 /HPF Squamous Epithelial Cell Urine 0-2 0-2 /HPF Bacteria Urine None Seen None Seen Hyaline Casts Urine 0-2 0-2 /LPF REASON FOR VISIT yearly fasting labs Encounters Encounter Location Date Provider Diagnosis Jersey López MD [address] [place], [place] [phone] 09/01/2024 Jersey López Blood tests for routine general physical examination Z00.00 ; Acquired hypothyroidism E03.9 and Lymphocytosis D72.820 Assessments Encounter Date Diagnosis (ICD Code) Assessment Notes Treatment Notes Treatment Clinical Notes Section Notes 09/01/2024 Blood tests for routine general physical examination (ICD-10 - Z00.00) 09/01/2024 Acquired hypothyroidism (ICD-10 - E03.9) 09/01/2024 Lymphocytosis (ICD-10 - D72.820) Plan Of Treatment Pending Test Test Name Order Date Complete Blood Count Auto Diff 5 Comprehensive Scott. Panel Fast 5 Lipid Panel 09/01/2024 PSA,Total (Free>4and<10) 09/01/2024 TSH reflex Free T4 09/01/2024 UA ClnCatch+Micro w/rflx Cult 09/01/2024 Next Appt Details Provider Name:Jersey Lenz ier, 09/05/2024 09:30:00 AM, [address], [address], [place], [place], [phone], Progress Notes * Tee VILLATORO WDOB:1979 (44 yo M)Acc No.[id number]:09/01/2024 Progress Note Patient:?Tee VILLATORO Provider:?Jersey López MD :1980???Age:44 Y???Sex:Male Ulises e:09/01/2024 Address:[address] [place] [address], [facility] Subjective: * Chief Complaints: * ???1. Yearly fasting labs. * Medical History:? Objective: * Vitals:? Assessment: * Assessment: 1.?Blood tests for routine g eneral physical examination - Z00.00 (Primary)???2.?Acquired hypothyroidism - E03.9???3.?Lymphocytosis - D72.820??? Plan: * Treatment: 2.?Acquired hypothyroidism?LAB: Complete Blood Count Auto Diff (Collection Date & Time - 09/01/2024 07:00 AM) ?LAB: Comprehensive Scott. Panel Fast ?LAB: Lipid Panel ?LAB: PSA,Total (Free>4and<10) (Collection Date & Time - 09/01/2024 07:00 AM) ?LAB: TSH reflex Free T4 ?LAB: UA ClnCatch+Micro w/rflx Cult (Collection Date & Time - 09/01/2024 07:00 AM) 3.?Lymphocytosis?LAB: Complete Blood Count Auto Diff (Collection Date & Time - 09/01/2024 07:00 AM) ?LAB: Comprehensive Scott. Panel Fast ?LAB: Lipid Panel ?LAB: PSA,Total (Free>4and<10) (Collection Date & Time - 09/01/2024 07:00 AM) ?LAB: TSH reflex Free T4 ?LAB: UA ClnCatch+Micro w/rflx Cult (Collection Date & Time - 09/01/2024 07:00 AM) * Procedure Codes:?17422 VENIP UNCT, ROUTINE* * * The named appointment provid er may or may not be the originator of this progress note, and it is not deemed complete until electronically signed by the appointment provider. Sign off status: Pending * Provider:?Jersey López MD Date:?0 09/01/2024 Generated for Rosaline huston/Nick/Franciscaitting on:?09/01/2024 12:09 PM EDT
--- OUTSIDE RECORDS SUMMARY | 2024-09-01 12:10 | XMS_ITS | Patient Health Record ---
Author Organization Jersey López MD Address [address] [place], [place] [phone] Care Team Providers Care Oracle Iam Consultant Name Role Phone Jersey López Primary Care Provider [phone] Allergies No Known Allergies Results Component Value Reference Range Notes Complete Blood Count Auto Di ff Reviewed date:10/04/2023 12:38:10 PM Interpretation: Performing Lab:[facility], [address] [place] [phone] Notes/Report: White Blood Count 5.9 4.8-10.8 X10*3/uL [...] NRBC Abs Auto 0.000 0.0-0.012 X10*3/uL Comprehensive Hunter. Panel Fa st Reviewed date:10/04/2023 01:12:30 PM Interpretation: Performing Lab:[facility], [address] [place] [phone] Notes/Report: Sodium 142 135-145 mmol/L Potassium 4.0 3.3-5.1 mmol/L Chloride 104 96-108 mmol/L Carbon Dioxide 26 22-29 mmol/L Anion Gap 16 12-20 Blood Urea Nitrogen 13 9-16 mg/dL Creatinine 0.86 0.5-1.4 mg/dL Estimated Glomerular Filt Rate > 60 NOTE: For -Iraqi individuals, multiply the result by 1.210. Chronic [...] Panel Reviewed date:10/04/2023 12:39:46 PM Interpretation: Performing Lab:[facility], [address] [place] [phone] Notes/Report: Triglycerides 203 <150 mg/dL Desirable Triglyceride: [...] (Free>4and<10) Reviewed date:10/04/2023 12:36:17 PM Interpretation: Performing Lab:[address] [phone] Notes/Report: PSA,Total (Free>4and<10) 0.50 0.00-4.00 ng/mL A [...] T4 Reviewed date:10/04/2023 12:39:34 PM Interpretation: Performing Lab:[facility], [address] [place] [phone] Notes/Report: TSH reflex Free T4 0.18 0.32-4.0 uIU/mL UA ClnCatch+Micro w/rflx Cul t Reviewed date:10/05/2023 12:36:30 PM Interpretation: Performing Lab:[address] [phone] Notes/Report: Urine, Clean Catch Color Urine Yellow Appearance Urine Clear PH 5.5 5.0-9.0 Glucose Urine UA Negative Negative mg/dL Urine Blood Negative Negative Specific [place] - Urine 1.015 1.005-1.025 Urine Protein Negative Neg-Trace mg/dL Urine Ketones Negative Negative mg/dL Nitrite Urine Negative Negative Leukocyte Esterase Urine Negative Negative RBC Urine 0-2 0-2 /HPF WBC Urine 0-5 0-5 /HPF Squamous Epithelial Cell Urine 0-2 0-2 /HPF Bacteria Urine None Seen None Seen Hyaline Casts Urine 0-2 0-2 /LPF Complete Blood Count Auto Di ff (Not yet reviewed by provider) Interpretation: Performing Lab:[facility], [address] [place] [phone] Notes/Report: White Blood Count 5.5 4.8-10.8 X10*3/uL [...] t yet reviewed by provider) Interpretation: Performing Lab:[address] [phone] Notes/Report: PSA,Total (Free>4and<10) 0.72 0.00-4.00 ng/mL A [...] (Not yet reviewed by provider) Interpretation: Performing Lab:[address] [phone] Notes/Report: Urine, Clean Catch Color Urine Yellow Appearance Urine Clear PH 5.5 5.0-9.0 Glucose Urine UA Negative Negative mg/dL Urine Blood Negative Negative Specific [place] - Urine 1.010 1.005-1.025 Urine Protein Negative Neg-Trace mg/dL Urine Ketones Negative Negative mg/dL Nitrite Urine Negative Negative Leukocyte Esterase Urine Negative Negative RBC Urine 0-2 0-2 /HPF WBC Urine 0-5 0-5 /HPF Squamous Epithelial Cell Urine 0-2 0-2 /HPF Bacteria Urine None Seen None Seen Hyaline Casts Urine 0-2 0-2 /LPF Occult Blood, Stool, Guaiac Reviewed date:10/05/2023 10:59:48 AM Interpretation:Negative Performing Lab: Notes/Report: Negative Occult Blood, Stool, Guaiac Neg TSH reflex Free T4 Reviewed date:06/19/2024 03:23:38 PM Interpretation: Performing Lab:[facility], [address] [place] [phone] Notes/Report: TSH reflex Free T4 < 0.01 0.32-4.0 uIU/mL Free T4 (Free Thyroxine) Reviewed date:10/04/2023 12:42:15 PM Interpretation: Performing Lab:[facility], [address] [place] [phone] Notes/Report: Free T4 (Free Thyroxine) 1.42 0.71-1.85 ng/dL Free T4 (Free Thyroxine) Reviewed date:06/19/2024 03:23:22 PM Interpretation: Performing Lab:[facility], [address] [place] [address] Notes/Report: Free T4 (Free Thyroxine) 1.69 0.71-1.85 [...] with patient he wants to go with [facility], he said he will call and booked his own appt and call me back with info., Sepideh Alex 11/16/2023 03:40:25 PM EDT > info faxed phone [phone], Sepideh Alex 12/02/2023 03:20:03 PM EDT > pre-op appt 12-20-23 at 8:30am with [place] [facility] Boss [id number] [place] procedure at [facility] with Dr. Gilman 04-27-24 at 1:30, Sepideh Alex 12/03/2023 11:26:19 AM EDT > info mailed to patient, Vero Dominique 07/27/2024 12:18:33 PM >COLONOSCOPY REPORT RECD Referral Priority Routine Referral Appointment Date 12/20/2023 [...] Administered pt was given the vaccine at [facility]. SARS-COV-2 Moderna Unknown 05/22/2020 Administered SARS-COV-2 Moderna [...] Status W/U Status Risk Notes Problem Lymphocytosis (11458676) Lymphocytosis (D72.820) Active confirmed Problem 029712093 Acquired hypothyroidism (E03.9) Active confirmed Problem Monocytosis (09249136) Monocytosis (D72.821) Active confirmed Vital Signs Blood pressure diastolic 70 mm Hg 08/03/2024 Height 75.5 in 08/03/2024 Blood pressure systolic 102 mm Hg 08/03/2024 Weight 200 lbs 08/03/2024 BMI 24.67 kg/m2 08/03/2024 Encounters Encounter Location Date Provider Diagnosis Jersey López MD [address] [place] [id number] 10/04/2023 Jersey López Acquired hypothyroidism E03.9 ; Lymphocytosis D72.820 and Blood tests for routine general physical examination Z00.00 Jersey López MD [address] [place] [id number] 09/01/2024 Jersey López Blood tests for routine general physical examination Z00.00 ; Acquired hypothyroidism E03.9 and Lymphocytosis D72.820 Jersey López MD [address] [place] [id number] 10/05/2023 Jersey López Annual physical exam Z00.00 ; Lymphocytosis D72.820 ; Acquired hypothyroidism E03.9 ; Colon cancer screening Z12.11 and Depression screening Z13.31 Jersey López MD [address] [id number] 06/19/2024 Jersey López Acquired hypothyroidism E03.9 Jersey López MD [address] [id number] 08/03/2024 Jersey López Acquired hypothyroidism E03.9 Jersey López MD [address] [place] [id number] 03/21/2024 Jersey López MD [address] [id number] 03/24/2024 Jersey López MD [address] [id number] 06/13/2024 Jersey López Acquired hypothyroidism E03.9 Assessments Encounter Date Diagnosis (ICD Code) Assessment Notes Treatment Notes Treatment Clinical Notes Section Notes 10/04/2023 Acquired hypothyroidism (ICD-10 - E03.9) 10/04/2023 Lymphocytosis (ICD-10 - D72.820) 09/01/2024 Blood tests for routine general physical examination (ICD-10 - Z00.00) 10/05/2023 Annual physical exam (ICD-10 - Z00.00) labs reviewed and discussed with patient, needs referral to gi for colonoscopy 10/05/2023 Lymphocytosis (ICD-10 - D72.820) 06/19/2024 Acquired hypothyroidism (ICD-10 - E03.9) patient verbalized understanding to stop medication, will continue to monitor, pending lab 08/03/2024 Acquired hypothyroidism (ICD-10 - E03.9) reviewed labs with patient, patient verbalized understanding of medication and directions for use. ORDER PRINTED AND GIVEN TO PATIENT ,[facility] 06/13/2024 Acquired hypothyroidism (ICD-10 - E03.9) 10/04/2023 Blood tests for routine general physical examination (ICD-10 - Z00.00) 09/01/2024 Acquired hypothyroidism (ICD-10 - E03.9) 10/05/2023 Acquired hypothyroidism (ICD-10 - E03.9) order given to patient. 09/01/2024 Lymphocytosis (ICD-10 - D72.820) 10/05/2023 Colon cancer screening (ICD-10 - Z12.11) guaiac negative 10/05/2023 Depression screening (ICD-10 - Z13.31) Plan Of Treatment Pending Test Test Name Order Date TSH (THYROID STIMULATING HORMONE) 2020 Complete Blood Count Auto Diff 5 Comprehensive Hunter. Panel Fast 5 Lipid Panel 09/01/2024 PSA,Total (Free>4and<10) 09/01/2024 TSH reflex Free T4 08/03/2024 TSH reflex Free T4 09/01/2024 UA ClnCatch+Micro w/rflx Cult 09/01/2024 Future Test Test Name Order Date TSH reflex Free T4 04/06/2024 Next Appt Details Provider Name:Jersey barrientos, 09/05/2024 09:30:00 AM, [address] [place] [address], [address], [place], [place], [phone], Insurance Providers Payer Name Payer Address Payer Phone Subscriber Number Group Number Insured Name Patient Relationship to Insured Coverage Start Date Coverage End Date [facility] [address] [place] [phone] [id number] Tee Robles se Self - patient is the insured
[2024-09-01 12:12] LABS: TSH reflex Free T4 < 0.01 uIU/mL (0.32-4.0)
[2024-09-01 12:49] LABS: Free T4 (Free Thyroxine) 1.74 ng/dL (0.71-1.85)
== END 2024-09-01 11:10 | disposition home or self-care (01) ==
LOC: HO.LNP 11:09
PROVIDERS: Visit Provider Internal Medicine
DX: Z00.00 Encounter for general adult medical examination without abnormal findings (principal); E03.8 Other specified hypothyroidism; D72.820 Lymphocytosis (symptomatic); Z12.5 Encounter for screening for malignant neoplasm of prostate
CPT/HCPCS: 80053; 80061; 81001; 84153; 84439; 84443; 85025